=== PATIENT | female | born 1985 | race African-American/Black ===

== ENCOUNTER 2024-07-31 07:07 | Outpatient (RCR) | payer OTHER, SELFPAY ==
[2024-07-31] VITALS (7 sets, daily range): BP systolic 125–135; BP diastolic 64–77; PULSE 71–86; RESP 14–16; TEMP 36.6–36.8; O2SAT 100
[2024-07-31 08:08] LABS: Hematocrit 22.7 % (37.0-47.0)
[2024-07-31 08:18] LABS: Hemoglobin 6.1 g/dL (12.0-15.0)
[2024-07-31] MEDS: SODIUM CHLORIDE 0.9% IV 250 ML 30 ML IV CONT (09:53)
== END 2024-10-29 23:59 | disposition home or self-care (01) ==
LOC: ANHCPCTRAN 07:07
PROVIDERS: PCP Family Medicine; Visit Provider Family Medicine
DX: D50.9 Iron deficiency anemia, unspecified (principal)
CPT/HCPCS: 36415; 36430; 85014; 85018; 86850; 86900; 86901; 86923; J7050; P9016

== ENCOUNTER 2024-10-21 00:50 | Day surgery (SDC) | payer OTHER, SELFPAY ==
[2024-10-16 15:23] VITALS: BMI 43.9
[2024-10-21 08:30] VITALS: BP 138/92; PULSE 77; RESP 16; TEMP 36.1; O2SAT 100; BMI 43.2
[2024-10-21 08:52] LABS: BEDSIDEPREGUCG Negative (Negative)
[2024-10-21] MEDS: LACTATED RINGERS 1,000 ML 150 ML IV CONT (09:29)
--- NOTE | 2024-10-21 09:39 | P.PNAN_ITS ---
Anes - Initial Pre Proc Eval Procedure: Operation Date: 10/21/24 09:45 Proposed Procedures p Esophagogastroduodenoscopy & Colonoscopy - Adin Gonzalez MD Date/Time: 10/21/24 09:39 Surgeon: Adin Gonzalez MD Pre Op Diagnosis: Anemia,fecal abnormalities Patient Data Age: 39 Gender: F Height: 1.57 m Weight: 107.3 kg Last Vital Signs Temp 36.1 C L 10/21/24 08:30 Pulse 77 10/21/24 08:30 Resp 16 10/21/24 08:30 BP 138/92 H 10/21/24 08:30 Pulse Ox 100 10/21/24 08:30 O2 Del Method Room Air 10/21/24 08:30 Allergies Allergy/AdvReac Type Severity Reaction Status Date / Time shellfish Allergy Unknown Unknown Uncoded 10/21/24 08:38 Home Medications ?Medication ?Instructions ?Recorded ?Confirmed ?Type albuterol sulfate 90 mcg/actuation 2 puff inhalation Q4H PRN 07/29/24 10/16/24 Rx aerosol inhaler shortness of breath or wheezing #18 grams cetirizine 10 mg capsule (Zyrtec) 10 mg PO DAILY PRN allergy symptoms 07/29/24 10/16/24 History ferrous sulfate 325 mg (65 mg 325 mg PO BID 08/12/24 10/16/24 History iron) tablet (Iron (ferrous sulfate)) Laboratory Tests 10/21/24 08:30 POC Urine HCG, Qual Negative (Negative) Patient hx anesthesia problems: none Family hx anesthesia problems: none Results Review: All pre-operative results and documents have been reviewed as part of the pre- operative evaluation. [facility] Past Medical History Medical History Positive fecal occult blood test Vitamin D deficiency Iron deficiency anemia Asthma Family History Family History Mother Asthma Thyroid disorder Sibling Asthma Depression Anxiety Grandparent Heart problem Social History Social History Smoking status: Never smoker Second hand tobacco smoke exposure: No Alcohol intake: never Substance use: never Substance use type: does not use Anes - Eval Final PreProcedure Day of Procedure 10/21/24 09:39 Patient weight: morbidly obese Heart: regular rate and rhythm Lungs: decreased breath sounds Airway: Mallampati scale class II Neurological: alert and oriented Last oral intake: >/= 8 hours ASA classification: III Emergent: no Anesthetic plan: proceed Anesthesia type and monitoring: general GIVS and standard monitoring Results Review: All pre-operative results and documents have been reviewed as part of the pre- operative evaluation. Informed Consent: The patient's anesthetic plan and its attendant risks and benefits were discussed with the patient/family/POA. Questions were solicited and answers provided to the satisfaction of the patient/family/POA.
--- NOTE | 2024-10-21 09:43 | PM.IMHP ---
H&P: HPI History of Present Illness Date/Time: 10/21/24 09:43 Chief Complaint: The patient was found to be severely anemic, with a hemoglobin around 6.0 in July this year. She denies GI symptoms such as change in bowel habits, abdominal pain, rectal bleeding, nausea, vomiting, unintentional weight loss, or early satiety. He describes her heavy menstrual periods for most of her adult life. She received a blood transfusion July. She is referred for iron deficiency anemia and the finding of occult blood in stools. Review of Systems Review of Systems: All systems reviewed & are unremarkable except as noted in HPI and below PMFSH Past Medical History Medical History Positive fecal occult blood test Vitamin D deficiency Iron deficiency anemia Asthma Family History Family History Mother Asthma Thyroid disorder Sibling Asthma Depression Anxiety Grandparent Heart problem Social History Social History Smoking status: Never smoker Second hand tobacco smoke exposure: No Alcohol intake: never Substance use: never Substance use type: does not use Meds Home Medications and Allergies Home Medications ?Medication ?Instructions ?Recorded ?Confirmed ?Type albuterol sulfate 90 mcg/actuation 2 puff inhalation Q4H PRN 07/29/24 10/16/24 Rx aerosol inhaler shortness of breath or wheezing #18 grams cetirizine 10 mg capsule (Zyrtec) 10 mg PO DAILY PRN allergy symptoms 07/29/24 10/16/24 History ferrous sulfate 325 mg (65 mg 325 mg PO BID 08/12/24 10/16/24 History iron) tablet (Iron (ferrous sulfate)) Allergies Allergy/AdvReac Type Severity Reaction Status Date / Time shellfish Allergy Unknown Unknown Uncoded 10/21/24 08:38 Vital Signs Vital Signs - 24 hr 10/21/24 08:30 Temperature 96.9 F L Pulse Rate 77 Respiratory Rate 16 Blood Pressure 138/92 H Pulse Oximetry 100 Oxygen Delivery Room Air Exam Const: General: cooperative and healthy appearing Resp: Effort & Inspection: normal respiratory effort and able to speak in complete sentences Auscultation: clear to auscultation bilaterally Cardio: Rate: regular rate Rhythm: regular rhythm GI: Inspection: normal to inspection GI Palp: No No hepatosplenomegaly present Auscultation: normal bowel sounds Rectal Exam: deferred Skin: General skin exam: normal color Psych: Appearance: grossly normal Mental Status: mental status grossly normal Assessment and Plan Assessment and plan (1) Iron deficiency anemia: Qualifiers: Iron deficiency anemia type: chronic blood loss Qualified Code(s): D50.0 - Iron deficiency anemia secondary to blood loss (chronic) Code(s): D50.9 - Iron deficiency anemia, unspecified Status: Acute Assessment and Plan: Most likely cause of iron deficiency anemia is heavy menses. However, the finding of occult blood in stools warrants investigation, therefore EGD and colonoscopy are indicated, I will perform them today. The patient is deemed a good candidate for the procedures. Consent signed. Will proceed. (2) Positive fecal occult blood test: Code(s): R19.5 - Other fecal abnormalities Status: Acute
--- NOTE | 2024-10-21 10:08 | SUR.OPER ---
EGD end 1003 COLONOSCOPY start 1009
[2024-10-21 10:22] VITALS: BP 151/72; PULSE 77; RESP 20; O2SAT 100
[2024-10-21 10:32] VITALS: BP 136/74; PULSE 70; RESP 20; O2SAT 100
[2024-10-21 10:42] VITALS: BP 133/85; PULSE 62; RESP 20; O2SAT 100
== END 2024-10-21 10:55 | disposition home or self-care (01) ==
PROVIDERS: Anesthesiology; PCP Family Medicine; Referring Provider Nurse Practitioner Family; Visit Provider Internal Medicine Gastroenterology
PROC: 0DJ08ZZ Inspection of Upper Intestinal Tract, Via Natural or Artificial Opening Endoscopic (ICD-10-PCS; CPT 45378; principal; 2024-10-21 09:45)
DX: K29.30 Chronic superficial gastritis without bleeding (principal); D50.9 Iron deficiency anemia, unspecified; K20.90 Esophagitis, unspecified without bleeding; E55.9 Vitamin D deficiency, unspecified; J45.909 Unspecified asthma, uncomplicated
CPT/HCPCS: 43239; 45378; 88305; 88342; J2003; J2704; J7120